=== PATIENT | female | born 1940 | race Caucasian/White ===

== ENCOUNTER → 2017-11-05 | Outpatient (CLI) | payer MEDICARE ==
[~2017-11-05] MED LIST: ALBU8.5H8 INH; ASCO10004 PO; ASPI-496 PO; BUDE0.25 INH; GABA100C PO; HYDR-3237 PO; LATA2.5D3 EACHEYE; LISI-466 PO; METO25TA35 PO; METR500T PO; MULT-464 PO; OMEG1CAP6 PO; OMEP-110 PO; PYRI50CA PO; SERT100T5 PO; SIMV40TA PO; TEMA30CA PO; TIOT18CA INH; TRAM50TA2 PO
== END | disposition home or self-care (01) ==
LOC: CFH 14:52
PROVIDERS: ATTEND Nurse Practitioner Family
DX: J44.1 Chronic obstructive pulmonary disease with (acute) exacerbation (principal)
CPT/HCPCS: 71046